=== PATIENT | female | born 1985 | race Caucasian/White ===

== ENCOUNTER 2019-02-02 07:40 | Inpatient (IN) ==
[2019-02-02] MEDS ORDERED: OXYTOCIN 30 UNITS/500 ML BAG IV PRN ×3 (08:01→23:38)
[2019-02-02 08:27] LABS: Hematocrit (blood only) 36.6 % (37-47); Hemoglobin 12.3 g/dL (12.0-16.0); Mean Corpuscular Volume 85.3 fL (80-100); Mean Platelet Volume 11.9 fL (7.4-10.4); Platelet Count 178 K/uL (130-400); RDW Coefficient of Variation 14.9 % (11.5-14.5); RDW Standard Deviation 46.3 fL (36.4-46.3); Red Blood Count 4.29 M/uL (4.2-5.4); White Blood Count 8.85 K/uL (4.8-10.8)
[2019-02-02 08:36] LABS: Mean Corpuscular Hgb Conc 33.6 g/dL (32-36)
[2019-02-02] MEDS: LACTATED RINGER'S 1,000 ML IV PRN ×3 (09:24→20:03)
--- NOTE | 2019-02-02 10:12 | History & Physical Report ---
Date of Service February 02, 2019 Assessment & Plan (1) Chronic hypertension during , antepartum: 34 year old here for induction of labor for chronic hypertension. 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 (2) Encounter for induction of labor: History of Present Illness Chief Complaint: Induction of Labor Primary Care Provider: Reed Hawkins M.D. Mrs. Zhanna Palomo is a 34 year old who is here for induction of labor at 38 weeks and 6 days for chronic hypertension. She has been feeling irregular mild contractions that are not painful or stop her from what she's doing. She has consistently felt good movement, has not noted any vaginal bleeding or discharge, and has no other pain or discomfort. She denies any headache, vision changes or swelling of hands or feet. Her only other resulted in delivery of a healthy girl delivered spontaneously at 39 weeks and 3 days by vaginal delivery. Blood type is A+, GBS -, Rubella Immune pap was normal. All other serologic testing normal, no sign of GDM. Normal weekly NST's since 32 weeks and biweekly NST's since 36 weeks. 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 Allergies Allergy/AdvReac Type Severity Reaction Status Date / Time clarithromycin Allergy Unknown HIVES Verified 01/20/19 19:09 Home Medications Home Medications Medication Instructions Recorded Confirmed Type vit-iron fum-folic ac 1 tab PO DAILY #0 tab 08/04/15 02/02/19 History [ Vitamin] albuterol sulfate 2 puff INHALATION Q6H PRN 02/02/19 02/02/19 History aspirin [Aspirin Childrens] 81 mg PO DAILY 02/02/19 02/02/19 History fluticasone propionate [Flonase 1 spray INTRANASAL DAILY 05/20/19 05/20/19 History Allergy Relief] labetalol 100 mg PO BID 02/02/19 02/02/19 History Past Med/Surg History Medical History Chronic hypertension diagnosed 3 years ago History of reduction of closed fracture right arm age 4 History of reduction of closed fracture left leg age 11 Family History Mother Diabetes Grandfather (Maternal) No problems noted. Grandfather (Paternal) No problems noted. 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: No Beliefs That Will Affect Care: None marital status: Current Living Situation: Spouse Other Information That Helps Us Care for You: No Feels Safe at Home: Yes Safety Concerns: Feels Safe At This Time Smoking Status: Never smoker Hx Alcohol Use: No Hx Substance Use: No Review of Systems Review of Systems: All systems reviewed & are unremarkable except as noted in HPI & below Physical Exam Constitutional: well developed and well nourished; no acute distress Respiratory: normal respiratory effort, lungs clear to auscultation Cardiovascular: RRR, no murmur, no edema Extremities: no calf tenderness Gastrointestinal (Abdomen): Inspection/Auscultation: + abdomen distended Pe rcussion/Palpation: abdomen soft; abdomen nontender Gravid uterus Skin: no rashes, warm and dry Genitourinary: heart tones present and normal rate, appear moderatelly variable. Deferred pelvic exam to attending, see attestation. Results & Data Vital Signs (Past 12 Hours) Vital Signs Temp Pulse Resp BP 02/02/19 09:32 71 20 132/87 02/02/19 08:00 36.9 C 78 20 139/90 02/02/19 07:48 78 139/90 02/02/19 07:47 36.9 C 20 Code Status & VTE Plan Code Status Full Code Supervising Physician Co-Signing Physician Notes Resident Physician Supervision Note: I interviewed and examined the patient. Discussed with Dr. Leos and agree with findings and plan as documented in the note. Any exceptions or clarifications are listed here: IOL for cHTN, cervix 350/-3, will give pitocin. Documented By: Violetta Grossman DO Resident Activity Tracking Resident Involvement: Resident Care Provided Care Provided: Adult [facility]
--- NOTE | 2019-02-02 18:37 | Obstetrical Progress Note ---
Date of Service February 02, 2019 Subjective Feeling some increased pressure. FHT Cat 1, toco Q 2 AROM copious clear fluid SVE 5/70/-1 Anticipate . Results & Data Vital Signs (Past 12 Hours) Vital Signs Temp Pulse Resp BP 02/02/19 18:34 90 144/99 H 02/02/19 17:45 78 140/98 02/02/19 16:51 82 20 143/92 H 02/02/19 15:35 98.4 F 77 20 140/88 02/02/19 14:26 81 110/74 02/02/19 13:29 74 119/69 02/02/19 12:30 70 136/85 02/02/19 11:54 98.1 F 76 20 124/85 02/02/19 10:31 71 18 141/93 H 02/02/19 09:32 71 20 132/87 02/02/19 08:00 98.4 F 78 20 139/90 02/02/19 07:48 78 139/90 02/02/19 07:47 98.4 F 20
[2019-02-02] MEDS ORDERED: LABETALOL HCL 100 MG TAB PO SCH (19:00)
[2019-02-02] MEDS ORDERED: BUPIVACAINE 0.25% 30 ML VIAL ONE (19:11)
[2019-02-02] MEDS ORDERED: fentaNYL 2MCG/ML ROPIV 1.25MG/ML 100 ML BAG EPI ONE (19:12)
[2019-02-02] MEDS ORDERED: ePHEDrine sulfate 50 MG/ML AMP ONE (19:12)
[2019-02-02] MEDS ORDERED: fentaNYL citrate 100 MCG/2 ML VIAL ONE (19:12)
--- NOTE | 2019-02-02 19:29 | Anesthesiology Consultation ---
Date of Service February 02, 2019 Assessment & Plan Chart Review Chart Review: Patient NOT seen in Pre Admission Testing and Acceptable Risk for Labor Epidural Consults Requested none ASA ASA2 Proposed Anesthesia Anesthesia Type: Labor Epidural and CSE Risk / Benefits Reviewed With: PT / POA / Parent / Guardian, Accepts Plan and Informed Consent Obtained History Height/Weight Height: 5 ft 7 in Weight: 97.522 kg Allergies Allergy/AdvReac Type Severity Reaction Status Date / Time clarithromycin Allergy Unknown HIVES Verified 01/20/19 19:09 Medications Home Medications Medication Instructions Recorded Confirmed Last Taken vit-iron fum-folic ac 1 tab PO DAILY #0 tab 08/04/15 02/02/19 02/01/19 19:00 [ Vitamin] albuterol sulfate 2 puff INHALATION Q6H PRN 02/02/19 02/02/19 02/01/19 20:00 aspirin [Aspirin Childrens] 81 mg PO DAILY 02/02/19 02/02/19 02/02/19 06:00 fluticasone propionate [Flonase 1 spray INTRANASAL DAILY 02/02/19 02/02/19 02/02/19 06:00 Allergy Relief] labetalol 100 mg PO BID 02/02/19 02/02/19 02/02/19 06:00 Active Medications Generic Name Dose Route Start Last Admin Trade Name Freq PRN Reason Stop Dose Admin Lactated Ringer's 1,000 mls @ 125 mls/hr 02/02/19 08:01 02/02/19 18:34 Lr IV 02/04/19 08:00 125 mls/hr .Q8H PRN Infusion L&D Protocol Protocol Oxytocin 30 units in 500 mls @ 21 mls/hr 02/02/19 08:01 02/02/19 18:34 Pitocin IV 02/04/19 08:00 1.26 units/hr .[id number] PRN 21 mls/hr Labor Induction/Augmentation Titration Protocol 1.26 UNITS/HR Labetalol HCl 100 mg 02/02/19 19:00 02/02/19 18:45 Normodyne PO 03/04/19 18:59 100 mg BID PRISCILLA Administration NPO Date Last Intake of Fluids: 02/02/19 Time Last Intake of Fluids: 19:00 Date Last Intake of Solids: 02/02/19 Time Last Intake of Solids: 06:00 Past Medical History Medical History Chronic hypertension diagnosed 3 years ago History of reduction of closed fracture right arm age 4 History of reduction of closed fracture left leg age 11 Exercise / Class Metabolic Activity II 4-5 Yardwork/Stairs/Walk up hill Past Family History Family History Mother Diabetes Grandfather (Maternal) No problems noted. Grandfather (Paternal) No problems noted. Grandfather (Maternal) Diabetes Grandmother (Maternal) Diabetes Father Hypertension Grandmother (Paternal) Heart disease Past Anesthesia History No Hx of Anesthesia Complications and No Family Hx of Anesthesia Complications History of PONV No Hx of PONV Social History Smoking Status: Never smoker Hx Alcohol Use: No Hx Substance Use: No Review of Systems no chest pain or sob Physical Exam Vital Signs Last Vital Signs Temp 36.9 C 02/02/19 15:35 Pulse 78 02/02/19 18:59 Resp 20 02/02/19 18:59 BP 148/94 H 02/02/19 18:59 ENMT Mouth: no TMJ abnormality Thyromental Distance: > or= 3.5 Finger Breadths Mallampati Class: II Neck normal visual inspection Respiratory normal respiratory effort Auscultation: lungs clear to auscultation bilaterally Cardiovascular Rate/Rhythm: regular rate and regular rhythm Musculoskeletal Spine: normal cervical ROM Neurologic moves all extremities Psychiatric Orientation: alert and oriented x 3 Testing Other Testing plt 178
[2019-02-02] MEDS ORDERED: ONDANSETRON INJ 2 MG/ML 2 ML VIAL IV PRN (19:51)
[2019-02-02] MEDS ORDERED: NALOXONE HCL 1 MG in SODIUM CHLORIDE 0.9% 1000ML 1,000 ML IV PRN (19:51)
[2019-02-02] MEDS ORDERED: DiphenhydrAMINE HCL 50 MG/ML VIAL IV PRN (19:51)
[2019-02-02] MEDS ORDERED: NALOXONE HCL 0.4 MG/1 ML VIAL/CARP IV PRN (19:51)
[2019-02-02] MEDS ORDERED: ePHEDrine sulfate 50 MG/ML AMP IV PRN (19:51)
[2019-02-02] MEDS ORDERED: fentaNYL 2MCG/ML ROPIV 1.25MG/ML 100 ML BAG EPI PRN (19:51)
[2019-02-02] MEDS ORDERED: NALBUPHINE HCL INJ 10 MG/ML AMP IV PRN (19:51)
--- NOTE | 2019-02-02 23:24 | Procedure Note ---
Vaginal Delivery Summary Date of Service February 02, 2019 Vaginal Delivery Summary Vaginal Delivery Summary: Pre-delivery diagnoses: 34yo @ 38 6/7, IOL for cHTN. multicystic dysplastic kidney, prominent distal PA (no stenosis). Advanced maternal age. Post-delivery diagnoses: same Procedure: spontaneous vaginal delivery, repair of 1st degree perineal laceration Surgeon: Violetta Grossman DO Complications: none Findings: Viable . Apgars: 8/9 . Weight pending, please see nursery records Estimated blood loss: 300ml Description of delivery: The patient progressed to complete with epidural anesthesia. She then began to push. She spontaneously vaginally delivered a viable from the cephalic presentation. The head delivered in VLADIMIR position. No nuchal cord noted. The anterior shoulder delivered, followed by the posterior shoulder, followed by the body. The baby was placed on mother's abdomen and a spontaneous cry was heard. Delayed cord clamping was employed, and the cord was doubly clamped and cut. Cord blood was obtained. The placenta was delivered spontaneously intact with a 3-vessel cord. The uterus and vagina were swept of clots and debris. IV pitocin was given. The uterus became firm. The cervix, vagina, and perineum were inspected and a 1st degree perineal lacerations was noted and repaired in standard fashion with 3-0 Vicryl. Excellent hemostasis was observed. The mother and baby are recovering in stable and good condition in the room. Sponge and needle and instrument counts were correct x 2. Violetta Grossman DO [facility] [place]
[2019-02-02] MEDS ORDERED: OXYCODONE/ACETAMINOPHEN 5mg/325mg TAB PO PRN (23:38)
[2019-02-02] MEDS ORDERED: ACETAMINOPHEN 325 MG TAB PO PRN (23:38)
[2019-02-02] MEDS ORDERED: BENZOCAINE 20% AER SPR 82.5 GM CAN EXT PRN (23:38)
[2019-02-02] MEDS ORDERED: HYDROCORTISONE ACETATE 25 MG SUPP PR PRN (23:38)
[2019-02-02] MEDS ORDERED: BISACODYL 10 MG SUPP PR PRN (23:38)
[2019-02-02] MEDS ORDERED: SUPERCREAM 0.870% 15 GM JAR EXT PRN (23:38)
[2019-02-02] MEDS ORDERED: IBUPROFEN 600 MG TAB PO PRN (23:38)
[2019-02-02] MEDS ORDERED: ALBUTEROL HFA 8 GM INHALER INH PRN (23:38)
--- NOTE | 2019-02-03 00:10 | Anesthesia Procedure Note ---
Date of Service February 03, 2019 Anesthesia Post Epidural Note Vital Signs Vital Signs: Temp Pulse Resp BP Pulse Ox 02/03/19 00:00 18 02/02/19 23:30 18 02/02/19 23:26 88 131/84 02/02/19 23:15 18 02/02/19 23:11 78 134/84 02/02/19 23:00 36.7 C 18 02/02/19 22:56 74 138/86 05 22:41 88 20 132/75 02/02/19 22:26 86 20 135/77 98 02/02/19 22:21 90 97 02/02/19 22:16 80 96 05 22:11 84 153/99 H 97 02/02/19 22:06 100 H 98 02/02/19 22:01 98 H 97 02/02/19 21:58 98 H 149/90 H 02/02/19 21:56 97 H 98 02/02/19 21:51 86 99 02/02/19 21:46 87 99 02/02/19 21:42 88 138/89 02/02/19 21:41 88 98 02/02/19 21:36 79 96 05 21:31 76 99 05 21:27 81 127/77 05 21:26 77 97 02/02/19 21:21 77 98 05 21:16 82 96 05 21:15 91 H 91 05 21:13 71 120/69 05 21:11 95 H 97 02/02/19 21:06 89 97 02/02/19 21:01 68 97 05 20:56 97 H 98 02/02/19 20:53 36.8 C 70 16 127/75 0520/19 20:51 70 97 0520/19 20:48 85 129/73 0520/19 20:46 80 97 0520/19 20:43 83 120/70 0520/19 20:41 72 98 0520/19 20:38 71 121/78 0520/19 20:36 71 97 0520/19 20:33 77 120/73 0520/19 20:31 88 98 052019 20:29 81 121/74 0520/19 20:26 92 H 99 02/02/19 20:23 75 115/69 02/02/19 20:21 72 97 02/02/19 20:18 81 126/80 02/02/19 20:16 80 97 02/02/19 20:13 78 118/72 02/02/19 20:11 75 98 02/02/19 20:09 96 H 130/75 02/02/19 20:08 86 93 02/02/19 20:06 95 H 94 02/02/19 20:03 100 H 126/68 02/02/19 20:01 97 H 128/73 97 02/02/19 19:59 73 122/58 L 02/02/19 19:57 77 106/59 L 02/02/19 19:56 73 95 02/02/19 19:55 67 108/57 L 02/02/19 19:53 92 H 71/37 L 02/02/19 19:51 122 H 99 02/02/19 19:46 90 99 02/02/19 19:42 92 H 92 02/02/19 19:41 95 H 97 02/02/19 19:36 71 99 02/02/19 18:59 78 20 148/94 H 02/02/19 18:47 77 139/93 02/02/19 18:34 90 144/99 H 02/02/19 17:45 78 140/98 02/02/19 16:51 82 20 143/92 H 02/02/19 15:35 36.9 C 77 20 140/88 02/02/19 14:26 81 110/74 02/02/19 13:29 74 119/69 02/02/19 12:30 70 136/85 02/02/19 11:54 36.7 C 76 20 124/85 02/02/19 10:31 71 18 141/93 H 02/02/19 09:32 71 20 132/87 02/02/19 08:00 36.9 C 78 20 139/90 02/02/19 07:48 78 139/90 02/02/19 07:47 36.9 C 20 Pain Intensity Bilateral Abdomen: Pain Intensity: 0 Notes Mental Status: alert / awake / arousable and participated in evaluation Nausea / Vomiting: adequately controlled Pain: adequately controlled Airway Patency, RR, SpO2: stable & adequate BP & HR: stable & adequate Hydration State: stable & adequate Neuraxial Anesthesia: was administered and sensory block is resolving Anesthetic Complications: no major complications apparent and Pt Satisfied with anesthetic care Epidural: Removed without complications and With tip intact
[2019-02-03] MEDS: LABETALOL HCL 100 MG TAB PO SCH ×2 (05:53→19:09)
[2019-02-03 06:43] LABS: Hematocrit (blood only) 34.2 % (37-47); Hemoglobin 11.3 g/dL (12.0-16.0)
--- NOTE | 2019-02-03 07:18 | Obstetrical Progress Note ---
Date of Service <Alberto Leos MD - Last Filed: 02/03/19 07:18> February 03, 2019 Assessment & Plan <Alberto Leos MD - Last Filed: 02/03/19 07:18> (1) (spontaneous vaginal delivery): 34 year old Vital Signs Reviewed and WNL Hemoglobin 11.3 Blood type A+, GBS -, Rubella Immune Patient doing very well clinically, eating, walking, passing gas, and using restroom without difficulty Encouraged ambulation as tolerated, continuing with breast feeding Went over discharge instructions with patient. Subjective <Alberto Leos MD - Last Filed: 02/03/19 07:18> Ambulation: ambulating normally Voiding: no voiding problems Passing Gas:: Yes Diet Tolerance:: regular diet Lochia:: Small Feeding Type:: breast feeding Current Pain Level(1-10): 0 Patient doing very well, no complaints at all at this time she feels she is ready to return home. Constitutional: no fever and no chills Respiratory: no cough, no dyspnea and no wheezing Cardiovascular: no chest pain, no dyspnea and no orthopnea Gastrointestinal: no abdominal pain, no nausea and no vomiting Physical Exam <Alberto Leos MD - Last Filed: 02/03/19 07:18> Vital Signs (Past 24 Hours) Last Vital Signs Temp 36.4 C L 02/03/19 03:05 Pulse 75 02/03/19 03:05 Resp 14 02/03/19 03:05 BP 117/70 02/03/19 03:05 Pulse Ox 96 02/03/19 03:05 Constitutional WD/WN, vitals as above cooperative and comfortable Respiratory normal respiratory effort, lungs clear to auscultation Cardiovascular Rate/Rhythm: regular rate and regular rhythm Heart Sounds: no click, no gallop, no murmur and no cardiac rub Extremities: no calf tenderness Genitourinary OB Exam Abdomen: + fundal height (1 cm below umbilicus) Fundus: + firm; not tender <Violetta Grossman DO - Last Filed: 02/03/19 08:00> Co-Signing Physician Notes Resident Physician Supervision Note: I was present with Dr. Leos during the history and exam. I discussed the case with the resident and agree with the findings and plan as documented in the note. Any exceptions or clarifications are listed here: PPD#1 doing well. Desires discharge home. Instructions reviewed. RTO [id number] Documented By: Violetta Grossman DO Resident Activity Tracking <Alberto Leos MD - Last Filed: 02/03/19 07:18> Resident Involvement: Resident Care Provided Care Provided: OB Delivery
[2019-02-03] MEDS: DOCUSATE SODIUM 100 MG CAP PO SCH ×2 (08:32→20:17)
[2019-02-03] MEDS ORDERED: FLUTICASONE PROPIONATE NA SPR 16 GM BTL SCH (09:00)
[2019-02-03] MEDS ORDERED: PRENATAL VITAMIN 1 TAB PO SCH ×2 (09:00)
[2019-02-03] MEDS ORDERED: BISACODYL 5 MG TABEC PO SCH (20:00)
[2019-02-04] MEDS ORDERED: DIPHTHERIA/TETANUS/PERTUSSIS 0.5 ML SYR/VIAL IM ONE (09:00)
== END 2019-02-03 22:30 | disposition home or self-care (01) | DRG 807 ==
LOC: 4S1 07:40 → 4S2 02-03 00:45